=== PATIENT | female | born 1965 | race Caucasian/White ===

== ENCOUNTER 2020-06-04 12:40 | Emergency (ER) | payer BC, SELFPAY ==
--- NOTE | ~2020-06-04 | XR_ITS ---
EXAMINATION: XR chest 2V DATE: 06/04/2020 13:25 INDICATION: Chest pain TECHNIQUE: PA and lateral views of the chest are obtained. COMPARISON: None available FINDINGS: The lungs are free of acute opacities. There is no pleural effusion or pneumothorax. The ca rdiomediastinal silhouette is normal. There is mild thoracic spondylosis. Surgical clips in the right upper quadrant are likely from prior cholecystectomy. IMPRESSION: 1. No acute cardiopulmonary abnormality. Reviewed, dictated and finalized at location B.
[2020-06-04 12:50] VITALS: BP 150/85; PULSE 101; RESP 18; TEMP 36.7; O2SAT 100
--- NOTE | 2020-06-04 12:58 | ECG_ITS ---
Measurements Intervals [place] Rate: 92 P: 71 OH: 135 QRS: 50 QRSD: 88 T: 57 QT: 366 QTc: 454 Interpretive Statements SINUS RHYTHM BASELINE WANDER- V3 NORMAL ECG Electronically Signed On 06-04-2020 13:05:02 CDT by Charles Robb D.O.
[2020-06-04] MEDS: ASPIRIN 81 MG CHEWABLE TABLET 324 MG PO (13:01)
--- NOTE | 2020-06-04 13:12 | ED.CHESTPAIN ---
HPI - Chest Pain General Chief Complaint: Chest Pain Stated Complaint: CHEST PAIN THIS AM Time Seen by Provider: 06/04/20 12:46 History of Present Illness HPI narrative: Patient presents for an episode of chest pain this morning on her way to work. She points to the lower sternal epigastric area. Lasted 30 minutes total. Started in the car, and continued at her job. She tried water which did not help. She went to her daughter's house and had more water and pretzels, and then the pain resolved. It was associated with nausea, tightness across her back along the bra line, and sweating. As it was resolving she had tingling on the upper lip, and her right hand felt cold. She has a history of panic attack. She thought this would be her gallbladder except she had it out last September., She has no known heart disease or hypertension. She would gauges the pain at 7 out of 10 when it was at its worst. 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 MD complaint: chest pain Pertinent past history: other (Panic attack) Onset (ago): hour(s) Timing of current episode: episodic Prior episodes: Yes Onset: during rest Pain location: substernal and epigastric Pain radiation: back Relieving factors: eating Exacerbating factors: nothing Related Data Home Medications Medication Instructions Recorded Confirmed No Home Medications 06/04/20 06/04/20 Allergies Allergy/AdvReac Type Severity Reaction Status Date / Time meperidine [From Demerol] Allergy Nausea and Verified 06/04/20 12:57 Vomiting Penicillins Allergy Hives Verified 06/04/20 12:56 Review of Systems Review of Systems: Narrative: CONSTITUTIONAL: Denies fever, chills, or sweats. EYES: Denies visual changes, redness, or discharge. ENT: Denies rhinorrhea, congestion, sore throat, or otalgia. CARDIOVASCULAR: Denies chest pain, palpitations, or edema. RESPIRATORY: Denies cough or dyspnea. GASTROINTESTINAL: Denies abdominal pain, nausea, vomiting, or diarrhea. GENITOURINARY: Denies dysuria or hematuria. SKIN: Denies rash or itching. MUSCULOSKELETAL: Denies back pain, joint pain, or myalgia. NEUROLOGIC: Denies headache, numbness, or weakness. PSYCHIATRIC: She has a history of panic attacks, and frequently has anxiety and stress. [facility] Past Medical History Medical History History of rectal fissure Panic attack Surgical History Surgical History History of cholecystectomy History of tonsillectomy Social History Social History (Updated 06/04/20 @ 13:13 by Dionna Salgado MD) Smoking status: Never smoker Alcohol intake: current Substance use: never Exam Narrative: Exam Narrative: GENERAL: Well-appearing, well-nourished, and in no acute distress. Rosamaria lady HEAD: Normocephalic, atraumatic. EYES: PERRLA and EOMI. ENT: Nares clear, no rhinorrhea or epistaxis. Mucous membranes moist. NECK: Supple. CHEST: Clear to auscultation. No respiratory distress. HEART: Regular rate and rhythm. No murmur heard. Normal peripheral pulses. ABDOMEN: Soft, nontender, nondistended, normal active bowel sounds. EXTREMITIES: Normal range of motion. No edema. SKIN: Warm, dry, no rash. NEURO: No focal deficits. Alert and oriented x3. PSYCH: Normal mood and affect. Course Reevaluation(s) Reevaluation #1: Went in to explain the patient's test results were all normal, and that I was going to refer her to GI doctor. She said she does not want to go. She did agree to go to a primary care. Date: 06/04/20 Time: 14:55 Vital Signs Vital signs: Vital Signs Temperature 98.0 F 06/04/20 12:50 Pulse Rate 101 H 06/04/20 12:50 Respiratory Rate 18 06/04/20 12:50 Blood Pressure 150/85 H 06/04/20 12:50 Pulse Oximetry 100 06/04/20 12:50 Temperature 98.0 F 06/04/20 12:50 Pulse Rate 77 06/04/20 13:52 Respiratory Rate 18 06/04/20 13:52 Blood Pressure 129/
[2020-06-04 13:52] VITALS: BP 129/78; PULSE 77; RESP 18; O2SAT 100
[2020-06-04 13:54] LABS: Basophils Percent Auto 0.2 % (0.2-1.2); Eosinophils Percent Auto 0.2 % (0-4.4); Hematocrit 43.2 % (37.0-47.0); Hemoglobin 14.7 g/dL (12.0-15.0); Immature Granulocyte Absolute 0.04 K/mm3 (0.00-0.031); Immature Granulocyte Percent A 0.4 % (0-0.5); Lymphocytes Absolute Auto 1.46 K/mm3 (0.9-3.2); Lymphocytes Percent Auto 12.9 % (18.3-44.2); Mean Corpuscular Hemoglobin 30.6 pg (26-34); Mean Platelet Volume 10.1 fl (7.4-10.4); Monocytes Absolute Auto 0.5 K/mm3 (0.1-0.6); Monocytes Percent Auto 4.4 % (2.6-8.5); Neutrophils Absolute Auto 9.3 K/mm3 (1.3-6.7); Neutrophils Percent Auto 81.9 % (45.5-73.1); Platelet Count Result 230 k/mm3 (150-375); Red Cell Distribution Width 12.2 % (11.5-14.5); White Blood Count 11.3 K/mm3 (4.5-10.0)
[2020-06-04 14:02] LABS: Prothrombin Time 13.2 Seconds (11.1-14.7)
[2020-06-04 14:03] LABS: Partial Thromboplastin Time 25.2 SECONDS (22.3-36.8)
[2020-06-04 14:10] LABS: Anion Gap 12.1 mmol/L (7-16); Blood Urea Nitrogen 11 mg/dL (7-17); Calcium 9.3 mg/dL (8.4-10.2); Carbon Dioxide 27 mmol/L (22-30); Chloride 101 mmol/L (98-107); Estimated CRCL calculation 67 ml/min; Estimated Glomerular Filt Rate > 60; Glucose 111 mg/dL (65-105); Potassium 4.1 mmol/L (3.4-5.0); Sodium 136 mmol/L (137-145)
[2020-06-04 14:22] LABS: Troponin I < 0.012 ng/mL (0.000-0.034)
[2020-06-04 15:00] VITALS: BP 127/99; PULSE 80; RESP 18; O2SAT 98
== END 2020-06-04 15:03 | disposition home or self-care (01) ==
PROVIDERS: Emergency Provider Emergency Medicine
DX: R07.89 Other chest pain (principal)
CPT/HCPCS: 36415; 71046; 80048; 84484; 85025; 85610; 85730; 93005; 99284; A9270

== ENCOUNTER 2025-10-19 10:33 | Outpatient (CLI) | payer OTHER, SELFPAY ==
--- NOTE | ~2025-10-19 | MM_ITS ---
EXAMINATION: MM screening saurabh BI w yamila HISTORY: Screening. TECHNIQUE: Craniocaudal and mediolateral oblique 3-D tomosynthesis images were obtained and synthetic 2-D images were generated. CAD analysis was submitted and interpreted. COMPARISON: None available. BREAST PARENCHYMAL COMPOSITION: Dense: The breasts are heterogeneously dense FINDINGS: There is architectural distortion with suspected underlying mass in the left upper outer quadrant. There are some calcifications adjacent to the mass and possibly some calcifications in the mass. I note that the patient has a mass containing a biopsy clip on the right. She must have breast imaging from another institution. There are questionable calcifications on both sides. Comparison to prior studies is recommended. There are multiple, bilateral, circumscribed nodules/masses, a benign finding. There are no skin or nipple abnormalities identified. There is a lymph node overlying the left axilla on the MLO view. It has the appearance of cortical thickening. This could be secondary to 2 lymph nodes together. IMPRESSION: 1. Suspicious findings on the left for which additional imaging is recommended. 2. Questionable lymph node(s) in or near the left axilla for which ultrasound is recommended. 3. There are multiple bilateral circumscribed masses, which is generally a benign finding. However, there are questionable calcifications on both sides. Comparison to the prior studies is highly recommended. BI-RADS 0 - Incomplete - needs additional imaging evaluation and/or prior mammograms for comparison. Reviewed, dictated and finalized at location C. [employer] IMPRESSION: 1. Suspicious findings on the left for which additional imaging is recommended. 2. Questionable lymph node(s) in or near the left axilla for which ultrasound i s recommended. 3. There are multiple bilateral circumscribed masses, which is generally a monica gn finding. However, there are questionable calcifications on both sides. Prateek rison to the prior studies is highly recommended. BI-RADS 0 - Incomplete - needs additional imaging evaluation and/or prior mammo grams for comparison.
--- NOTE | ~2025-10-19 | DEXA_ITS ---
Bone Density Report Name: BRENNA MARQUEZ Age: 60 Sex: Female Ethnicity: White Date of : 1965 Indication: postmenopausal; screening for osteoporosis; Referring Provider: JYOTHI GUSTAFSON Study: Bone densitometry was performed. Exam Date: October 19, 2025 Accession number: [id number] Bone Density: Region BMD T-score Z-score Classification AP Spine(L1-L4) 0.933 -1.0 0.5 Normal Femoral Neck (Left) 0.695 -1.4 0.0 Osteopenia Total Hip (Left) 0.814 -1.0 0.0 Normal Femoral Neck (Right) 0.761 -0.8 0.6 Normal Total Hip (Right) 0.822 -1.0 0.1 Normal Total Hip Mean 0.818 -1.0 0.1 Normal World Health Organization criteria for BMD impression classify patients as: Normal (T-score at or above -1.0), Osteopenia (T-score between -1.0 and -2.5), or Osteoporosis (T-score at or below -2.5). 10-year Fracture Risk(1): Major Osteoporotic Fracture 8.1% Hip Fracture 0.7% Reported Risk Factors: [place] (), Neck BMD=0.695, BMI=27.1 (1) FRAX(R) Version 3.08. Fracture probability calculated for an untreated patient. Fracture probability may be lower if the patient has received treatment. Clinical Information Provided by Patient: Has used the following medications: Vitamin D Patient maximum height was 64 Menopause Age: 49 No regular weight bearing exercise Does not regularly consume dairy products Drinks caffeinated beverages Onset of menses at age 12 Number of children 1 Impression: The patient has low bone mass, based on the Left Femoral Neck T-score. The patient has an estimated ten-year risk of hip fracture of 0.7% and an estimated ten-year risk of major fracture of 8.1%, based on the WHO FRAX algorithm. Discussion: BONE DENSITY IS LOW AT ONE OR MORE SKELETAL SITES. This patient's lowest T-score is low at one or more skeletal sites. It meets the World Health Organization's (WHO) criteria for ?low bone mass? (T-score between -1.0 and -2.5). The patient's 10-year risk of fracture as calculated by FRAX is less than the threshold where pharmacological therapy is recommended by the National Osteoporosis Foundation (NOF). However, all treatment decisions require clinical judgment and consideration of individual patient factors, including patient preferences, comorbidities, previous drug use, risk factors not captured in the FRAX model (e.g., frailty, falls, vitamin D deficiency, increased bone turnover, interval significant decline in bone density) and possible under or overestimation of fracture risk by FRAX. The patient should follow a healthful lifestyle (good nutrition with adequate calcium and vitamin D, and appropriate weight-bearing exercise). Follow-Up: Consider repeating this study in 2 to 3 years to reassess this patient's status, or sooner if there is some new clinical indication. Reported by: RAMY on 10/19/2025 11:18:00 AM. Reviewed, dictated and finalized at location A.
== END 2025-10-19 10:34 | disposition home or self-care (01) ==
LOC: MICIMG 10:33
PROVIDERS: PCP Nurse Practitioner Obstetrics & Gynecology; Visit Provider Nurse Practitioner Obstetrics & Gynecology
DX: Z12.31 Encounter for screening mammogram for malignant neoplasm of breast (principal); R92.8 Other abnormal and inconclusive findings on diagnostic imaging of breast; M85.89 Other specified disorders of bone density and structure, multiple sites; R29.890 Loss of height; Z78.0 Asymptomatic menopausal state; Z13.820 Encounter for screening for osteoporosis
CPT/HCPCS: 77063; 77067; 77080